=== PATIENT | female | born 1960 | race Caucasian/White ===

== ENCOUNTER 2020-09-03 19:46 | Emergency (ER) | payer MEDICARE, OTHER ==
[2020-09-03] MEDS ORDERED: PERCOCET 5-3251 EACH PO (20:23)
[2020-09-08] MEDS ORDERED: CYCLOBENZAPRINE10 MG PO (15:43)
[2020-09-08] MEDS ORDERED: TIZANIDINE HCL4 MG PO (15:43)
[2020-09-08] MEDS ORDERED: HYDROCODON-ACE1 EAC6 PO (15:44)
[2020-09-08] MEDS ORDERED: VITAMIN D PO (15:45)
[2020-09-08] MEDS ORDERED: PREDNISONE10 MG PO (15:45)
[2020-09-08] MEDS ORDERED: VITAMIN C PO (15:46)
[2020-09-08] MEDS ORDERED: MAGNESIUM PO (15:46)
[2020-09-08] MEDS ORDERED: DAILY VALUE1 EACH PO (15:46)
[2020-09-08] MEDS ORDERED: CALCIUM + VITA1 EACH PO (15:46)
[2020-09-13] MEDS ORDERED: MELATONIN5 M6 PO (09:23)
[2020-09-13] MEDS ORDERED: CBD OIL PO (09:24)
== END 2020-09-03 20:45 | disposition home or self-care (01) ==
LOC: ER1 19:46
DX: S82.851A Displaced trimalleolar fracture of right lower leg, initial encounter for closed fracture (principal); S92.101A Unspecified fracture of right talus, initial encounter for closed fracture; Z90.49 Acquired absence of other specified parts of digestive tract; Z88.0 Allergy status to penicillin; F17.200 Nicotine dependence, unspecified, uncomplicated; X50.9XXA Other and unspecified overexertion or strenuous movements or postures, initial encounter
CPT/HCPCS: 29515; 73610; 99283

== ENCOUNTER → 2020-09-13 | Day surgery (SDC) | payer MEDICARE, OTHER ==
[~2020-09-13] VITALS: Ht 180.3 cm; Wt 72.6 kg
[~2020-09-13] MED LIST: CALCIUM + VITA1 EACH PO; CBD OIL PO; CYCLOBENZAPRINE10 MG PO; DAILY VALUE1 EACH PO; HYDROCODON-ACE1 EAC6 PO; MAGNESIUM PO; MELATONIN5 M6 PO; PERCOCET 5-3251 EACH PO; PREDNISONE10 MG PO; TIZANIDINE HCL4 MG PO; VITAMIN C PO; VITAMIN D PO
[2020-09-13 09:36] LABS: RED BLOOD COUNT 4.18 M/UL (4.00-5.10); WHITE BLOOD COUNT 8.1 K/UL (4.5-11.0)
[2020-09-13 09:50] LABS: BUN/CREATININE RATIO 23 (0-10)
== END | disposition home or self-care (01) ==
LOC: OR 07:45
PROVIDERS: Podiatrist Foot & Ankle Surgery
DX: S82.851A Displaced trimalleolar fracture of right lower leg, initial encounter for closed fracture (principal); M25.471 Effusion, right ankle; S93.491A Sprain of other ligament of right ankle, initial encounter; B25.9 Cytomegaloviral disease, unspecified; B27.00 Gammaherpesviral mononucleosis without complication; Z88.0 Allergy status to penicillin; Z88.8 Allergy status to other drugs, medicaments and biological substances; W18.42XA Slipping, tripping and stumbling without falling due to stepping into hole or opening, initial encounter; R60.0 Localized edema; Z20.822 Contact with and (suspected) exposure to COVID-19; F17.210 Nicotine dependence, cigarettes, uncomplicated; M79.7 Fibromyalgia
CPT/HCPCS: 36415; 73610; 76000; 80048; 85025; C1713; C1762; C1769; J1100; J1885; J2001; J2250; J2370; J2405; J2704; J2795; J3010; J3370; J7120

== ENCOUNTER → 2020-09-21 | Outpatient (CLI) | payer MEDICARE, OTHER | LOC: KOH-I 11:29 | DX: S82.851A Displaced trimalleolar fracture of right lower leg, initial encounter for closed fracture (principal) | CPT/HCPCS: 73610 ==

== ENCOUNTER → 2020-10-05 | Outpatient (CLI) | payer MEDICARE, OTHER | LOC: KOH-I 13:18 | DX: S82.851D Displaced trimalleolar fracture of right lower leg, subsequent encounter for closed fracture with routine healing (principal) | CPT/HCPCS: 73610 ==

== ENCOUNTER → 2020-10-16 | Outpatient (CLI) | payer MEDICARE, OTHER | LOC: KOH-I 13:36 | DX: S82.851A Displaced trimalleolar fracture of right lower leg, initial encounter for closed fracture (principal); S82.851D Displaced trimalleolar fracture of right lower leg, subsequent encounter for closed fracture with routine healing | CPT/HCPCS: 73610 ==

== ENCOUNTER → 2020-10-30 | Outpatient (CLI) | payer MEDICARE, OTHER | LOC: KOH-I 13:00 | DX: S82.851D Displaced trimalleolar fracture of right lower leg, subsequent encounter for closed fracture with routine healing (principal); R22.41 Localized swelling, mass and lump, right lower limb; Z96.661 Presence of right artificial ankle joint | CPT/HCPCS: 73610 ==

== ENCOUNTER → 2020-11-30 | Outpatient (CLI) | payer MEDICARE | LOC: KOH-I 13:36 | DX: S82.851D Displaced trimalleolar fracture of right lower leg, subsequent encounter for closed fracture with routine healing (principal) | CPT/HCPCS: 73610 ==

== ENCOUNTER → 2021-03-20 | Outpatient (CLI) | payer MEDICARE | LOC: KOH-I 13:37 | DX: S82.851D Displaced trimalleolar fracture of right lower leg, subsequent encounter for closed fracture with routine healing (principal) | CPT/HCPCS: 73610 ==

== ENCOUNTER → 2021-06-27 | Outpatient (CLI) | payer MEDICARE | LOC: KOH-I 15:14 | DX: S82.852D Displaced trimalleolar fracture of left lower leg, subsequent encounter for closed fracture with routine healing (principal) | CPT/HCPCS: 73700 ==

== ENCOUNTER → 2021-07-13 | Outpatient (CLI) | payer MEDICARE | LOC: KOH-I 14:24 | DX: M80.061D Age-related osteoporosis with current pathological fracture, right lower leg, subsequent encounter for fracture with routine healing (principal) | CPT/HCPCS: 73718 ==